=== PATIENT | female | born 1980 | race Hispanic/Latino ===

== ENCOUNTER 2017-11-06 18:37 | Emergency (ER) | payer OTHER ==
[2017-11-06 18:42] VITALS: BP 133/78; PULSE 81; RESP 16; TEMP 98.2; O2SAT 99
--- NOTE | 2017-11-06 20:48 | ED PDOC ---
Upper Extremity Pain/Injury Time Seen by Provider: 11/06/17 18:43 Chief Complaint (Nursing): Abnormal Skin Integrity Chief Complaint (Provider): Right Thumb Laceration History Per: Patient History/Exam Limitations: no limitations Onset/Duration Of Symptoms: Days (x1) Current Symptoms Are (Timing): Still Present Additional Complaint(s): 37 y/o female with no significant PMHx presenting for evaluation of right thumb injury prior to arrival. Patient states earlier today she accidentally cut her right thumb using a mandoline. Patient states the tip of the thumb of feels numb. Tetanus is UTD within the last 2 years. PMD: Tish Vela Past Medical History Reviewed: Historical Data, Nursing Documentation, Vital Signs Vital Signs: Last Vital Signs Temp 98.2 F 11/06/17 18:39 Pulse 81 11/06/17 18:39 Resp 16 11/06/17 18:39 BP 133/78 11/06/17 18:39 Pulse Ox 99 11/06/17 18:39 - Medical History PMH: No Chronic Diseases - Surgical History Surgical History: No Surg Hx - Family History Family History: States: Unknown Family Hx - Allergies Allergies/Adverse Reactions: Allergies Allergy/AdvReac Type Severity Reaction Status Date / Time No Known Allergies Allergy Verified 11/06/17 18:39 Review of Systems ROS Statement: Except As Marked, All Systems Reviewed And Found Negative Skin: Positive for: Lesions (laceration to right thumb) Neurological: Positive for: Numbness Physical Exam - Reviewed Nursing Documentation Reviewed: Yes Vital Signs Reviewed: Yes - Physical Exam Appears: Positive for: No Acute Distress Extremity: Positive for: Other (semicircular laceration to distal phalanx of right thumb approximately 1 cm in length, no active bleeding) Neurologic/Psych: Positive for: Alert, Oriented (x3) - ECG O2 Sat by Pulse Oximetry: 99 (RA) Pulse Ox Interpretation: Normal Medical Decision Making Medical Decision Making: Plan: -Laceration repair Just prior to the procedure, patient reports the numbness has completely resolved. 20:05 Procedure completed without complication. Patient tolerated procedure well. Advised to return for suture removal in 7 days. Stable for discharge. Scribe Attestation: Documented by Junito Ruvalcaba, acting as a scribe for Almas Pulido PA-C. Provider Scribe Attestation: All medical record entries made by the scribe were at my direction and personally dictated by me. I have reviewed the chart and agree that the record accurately reflects my personal performance of the history, physical exam, medical decision making, and the department course for this patient. I have also personally directed, reviewed, and agree with the discharge instructions and disposition. Procedures - Laceration/Wound Repair Distal Phalanx Of Right Thumb Wound Length (cm): 1 Wound's Depth, Shape: superficial (semicircular) Irrigated w/ Saline (ccs): 100 Wound Repaired With: Sutures Suture Size/Type: 5:0 (ethilon) Number of Sutures: 5 Wound Complexity: Simple Disposition - Clinical Impression Clinical Impression: Thumb laceration - Patient ED Disposition Is Patient to be Admitted: No Counseled Patient/Family Regarding: Diagnosis, Need For Followup - Disposition Referrals: [email or web address] [Outside] Disposition: Routine/Home Disposition Time: 20:05 Condition: IMPROVED Additional Instructions: SUTURE REMOVAL IN 7 DAYS KATE MARTINO, thank you for letting us take care of you today. Your provider was Jagruti Montoya MD and you were treated for RT HAND INJURY. The emergency medical care you received today was directed at your acute symptoms. If you were prescribed any medication, please fill it and take as directed. It may take several days for your symptoms to resolve. Return to the Emergency Department if your symptoms worsen, do not improve, or if you have any other problems. Please contact your doctor or call one of the physicians/clinics you have been referred to that are listed on the Patient Visit Information form that is included in your discharge packet. Bring any paperwork you were given at discharge with you along with any medications you are taking to your follow up visit. Our treatment cannot replace ongoing medical care by a primary care provider outside of the emergency department. Thank you for allowing the [facility] team to be part of your care today. If you had an X-Ray or CT scan: A Radiologist will review the ED reading if any change in treatment is needed we will contact you. If you had a blood, urine, or wound culture: It will take several days for the results, if any change in treatment is needed we will contact you. If you had an STI test: It will take 48 hours for the results. Please call after 1 week if you have not heard back. Instructions: Laceration Repair With Stitches (DC) Forms: [employer] (Armenian) Print Language: [email or web address]
== END 2017-11-06 20:05 | disposition home or self-care (01) ==
LOC: H.ER 18:37
DX: S61.011A Laceration without foreign body of right thumb without damage to nail, initial encounter (principal); W26.8XXA Contact with other sharp object(s), not elsewhere classified, initial encounter; Y92.89 Other specified places as the place of occurrence of the external cause